=== PATIENT | male | born 1945 | race Caucasian/White ===

== ENCOUNTER 2018-06-12 14:24 | Observation (INO) | payer MEDICARE, OTHER ==
[~2018-06-12 14:24] MED LIST: Lactated Ringers 1,000 ML IV SCH; Sodium Chloride 0.9% 10 ML Syringe FLUSH PRN; Sodium Chloride 0.9% 2.5 ML Syringe FLUSH PRN; ceFAZolin 1 GM in Premix Bag 1 BAG IV SCH
[2018-06-12] MEDS: ceFAZolin 1 GM in Premix Bag 1 BAG IV SCH ×2 (17:42→22:20)
[2018-06-12] MEDS: QUEtiapine 25 MG Tab PO SCH (22:20)
[2018-06-13] MEDS: ceFAZolin 1 GM in Premix Bag 1 BAG IV SCH ×4 (03:36→22:05)
--- NOTE | 2018-06-13 08:42 | PCM.PREANE ---
Preanesthetic Assessment - Anesthesia/Transfusion/Family Hx Anesthesia History: Prior Anesthesia Without Reaction (william, vasectomy, ctr) Family History of Anesthesia Reaction: No Transfusion History: No Prior Transfusion(s) - Review of Systems General: No Symptoms Pulmonary: No Symptoms Cardiovascular: No Symptoms Gastrointestinal: No Symptoms Neurological: No Symptoms Other: Reports: None - Physical Assessment NPO Status Date: 06/12/18 O2 Sat by Pulse Oximetry: 97 Respiratory Rate: 17 Vital Signs: Last Vital Signs Temp 98.4 F 06/13/18 04:00 Pulse 64 06/12/18 17:00 Resp 17 06/13/18 04:00 BP 121/71 06/13/18 04:00 Pulse Ox 97 06/13/18 04:00 Height: 6 ft Weight: 69.853 kg ASA Class: 2 Mental Status: Alert & Oriented x3 Airway Class: Mallampati = 2 Dentition: Reports: Dentures (full lower, not in mouth), Bridge (upper central) ROM/Head Extension: Full Lungs: Clear to Auscultation, Normal Respiratory Effort Cardiovascular: Regular Rate, Regular Rhythm - Lab Values: Laboratory Last Values POC Glucose 88 mg/dL (60-110) 06/12/18 15:26 - Allergies Allergies/Adverse Reactions: Allergies Allergy/AdvReac Type Severity Reaction Status Date / Time pollen extracts Allergy Mild Other Verified 06/12/18 15:14 - Blood Blood Available: No - Anesthesia Plan Pre-Op Medication Ordered: None - Acknowledgements Anesthesia Type Planned: Spinal Pt an Appropriate Candidate for the Planned Anesthesia: Yes Alternatives and Risks of Anesthesia Discussed w Pt/Guardian: Yes Pt/Guardian Understands and Agrees with Anesthesia Plan: Yes Additional Comments: PMH: depression, hh/gerd, bph/urin retention, on self cath program, admitted dec 2017 in [facility] with RENATO secondary to obstructive uropathy H&P by Dr Bucio 6-8 weeks ago- we have no coopy of the H&P, ekg. kabs, CXR - have called [facility] for a copy of them PLAN: spinal with sedation PreAnesthesia Questionnaire HEENT History: Reports: Allergic Rhinitis Gastrointestinal History: Reports: Hiatal Hernia, Other (See Below) Other Gastrointestinal History: inguinal hernia Genitourinary History: Reports: BPH, Renal Disease, Retention, Urinary Musculoskeletal History: Reports: Arthritis, Other (See Below) Other Musculoskeletal History: left knee dislocation Psychiatric History: Reports: Depression - Infectious Disease History Infectious Disease History: Reports: Other (See Below) Other Infectious Disease History: pt does not know - Past Surgical History HEENT Surgical History: Reports: Naso-Sinus Surgery GI Surgical History: Reports: Cholecystectomy Musculoskeletal Surgical History: Reports: None - SUBSTANCE USE Smoking Status *Q: Never Smoker Second Hand Smoke Exposure: No Recreational Drug Use History: No - HOME MEDS Home Medications: Home Meds QUEtiapine [SEROquel] 25 mg PO BEDTIME 06/12/18 [History] Sertraline HCl 100 mg PO DAILY 06/12/18 [History] - CURRENT (IN HOUSE) MEDS Current Meds: Current Medications Lactated Ringer's (Ringers, Lactated) 1,000 mls @ 100 mls/hr IV ASDIRECTED CHICA Tobramycin 120 mg/ Sodium (Chloride) 103 mls @ 103 mls/hr IV Q12H [facility] Last Admin: 06/13/18 04:10 Dose: 103 mls/hr Cefazolin Sodium/Dextrose 1 gm (/ Premix) 50 mls @ 100 mls/hr IV Q6H [facility] Last Admin: 06/13/18 03:36 Dose: 100 mls/hr Quetiapine Fumarate (Seroquel) [address] [facility] Last Admin: 06/12/18 22:20 Dose: 25 mg Sertraline HCl (Zoloft) [address] [facility] Sodium Chloride (Saline Flush) 10 ml FLUSH ASDIRECTED PRN PRN Reason: Keep Vein Open Sodium Chloride (Saline Flush) 2.5 ml FLUSH ASDIRECTED PRN PRN Reason: Keep Vein Open Discontinued Medications Cefazolin Sodium/Dextrose 1 gm (/ Premix) 50 mls @ 100 mls/hr IV Q6H [facility] Stop: 05/23/18 10:00 Lactated Ringer's (Ringers, Lactated) 1,000 mls @ 100 mls/hr IV ASDIRECTED CHICA Tobramycin 120 mg/ Sodium (Chloride) 103 mls @ 103 mls/hr IV Q12H [facility] Sodium Chloride (Saline Flush) 10 ml FLUSH ASDIRECTED PRN PRN Reason: Keep Vein Open Sodium Chloride (Saline Flush) 2.5 ml FLUSH ASDIRECTED PRN PRN Reason: Keep Vein Open
[2018-06-13] MEDS ORDERED: fentaNYL 250 MCG/5 ML SDV ONE (08:46)
[2018-06-13] MEDS ORDERED: Propofol 200 MG/20 ML SDV ONE (08:46)
[2018-06-13] MEDS ORDERED: ePHEDrine 50 MG/ML SDV ONE (10:17)
[2018-06-13] MEDS ORDERED: Sodium Chloride 0.9% 20 ML ONE (10:18)
[2018-06-13] MEDS ORDERED: fentaNYL 100 MCG/2 ML SDV IVPUSH PRN (11:11)
[2018-06-13] MEDS ORDERED: HYDROmorphone 2 MG/ML SDV IVPUSH ONE (11:11)
[2018-06-13] MEDS ORDERED: Ondansetron 4 MG/2 ML SDV IVPUSH ONE (11:11)
--- NOTE | 2018-06-13 12:00 | PCM.POSTAN ---
POST ANESTHESIA ASSESSMENT - MENTAL STATUS Mental Status: Alert, Oriented - RESPIRATORY Respiratory Status: Respiratory Rate WNL, Airway Patent, O2 Saturation Stable - CARDIOVASCULAR CV Status: Pulse Rate WNL, Blood Pressure Stable - GASTROINTESTINAL GI Status: No Symptoms - POST OP HYDRATION Hydration Status: Adequate & Stable
--- NOTE | 2018-06-13 14:04 | OR ---
SURGEON: Lisa Green M.D. DATE OF PROCEDURE: 06/13/2018 PREOPERATIVE DIAGNOSIS: Urinary retention secondary to benign prostatic hyperplasia. POSTOPERATIVE DIAGNOSIS: Urinary retention secondary to benign prostatic hyperplasia. OPERATION: TURP. DESCRIPTION OF PROCEDURE: The patient was given anesthesia. He was placed in dorsal lithotomy position, prepped and draped in sterile drapes. The 28-Nepali resectoscope was introduced in the bladder without difficulty. The resection was done in the usual manner, starting with the floor of the prostatic urethra, going on laterally and anteriorly. At the end of resection, all prostatic chips were removed. Both ureteral orifices were intact. The area of the external sphincter was intact. A 22 three-way Harley catheter with 50 mL in the balloon was left in the bladder, connected to TUR drip. Estimated blood loss was 200 mL. The patient tolerated the procedure well and was moved to recovery room in a good condition. GONZALO / NASIM /[id number]
[2018-06-13] MEDS: Sertraline 100 MG Tab PO SCH (14:10)
--- NOTE | 2018-06-13 15:23 | PCM.SN ---
- Free Text/Narrative Note: 06/13/18 1522 patient status changed to observation due to need for bladder irrigation post op for 24 hours
[2018-06-13] MEDS: Lactated Ringers 1,000 ML IV SCH (15:45)
[2018-06-13] MEDS: QUEtiapine 25 MG Tab PO SCH (20:53)
[2018-06-14] MEDS: ceFAZolin 1 GM in Premix Bag 1 BAG IV SCH ×3 (03:31→15:59)
[2018-06-14] MEDS: Lactated Ringers 1,000 ML IV SCH ×2 (03:33→16:01)
[2018-06-14] MEDS: Sertraline 100 MG Tab PO SCH (09:28)
--- NOTE | 2018-06-14 10:06 | PCM.SN ---
- Free Text/Narrative Note: Doing well
--- NOTE | 2018-06-14 14:18 | PCM48HPAN ---
Post Anesthesia Note - EVALUATION WITHIN 48HRS OF ANESTHETIC Vital Signs in Normal Range: Yes Patient Participated in Evaluation: Yes Respiratory Function Stable: Yes Airway Patent: Yes Cardiovascular Function Stable: Yes Hydration Status Stable: Yes Pain Control Satisfactory: Yes Nausea and Vomiting Control Satisfactory: Yes Mental Status Recovered: Yes Resp Rate: 18
--- NOTE | 2018-06-15 05:19 | DISCH ---
DATE OF DISCHARGE: 06/14/2018 PRIMARY CARE PHYSICIAN: Unknown PCP He is 73 years old. He had difficulty urinating in the past and has been on self-intermittent catheterization for the last 3 months or so. He was seen in the office, was found to have an enlarged prostate, approximately 20 g for the adenoma. I decided to do a TURP on him to reduce the outflow resistance and see if he can void on his own without having to do self-intermittent catheterization, so that was done on 06/13/2018. Postoperatively, he did well. The catheter was taken out on 06/14/2018. He was, however, unable to void and had 800 mL of urine in his bladder. The urine is clear. We put the catheter back in and connected that to a leg bag. He was instructed to leave that in for one week or he was instructed to take it out in the morning next Tuesday and come to my office at 4:00 p.m. on Tuesday, so we can see if he has been able to void during that day and it is left in his bladder at that point. He is sent home on Macrobid 100 mg one p.o. b.i.d. for one week. GONZALO / NASIM /[id number]
== END 2018-06-14 19:10 | disposition home or self-care (01) ==
LOC: MW.SDS 14:24 → MW.MS 14:25 → MW.SDS 06-13 15:12 → MW.MS 06-13 15:46
PROVIDERS: ADMIT Urology; ATTEND Urology
DX: N40.1 Benign prostatic hyperplasia with lower urinary tract symptoms (principal); R33.8 Other retention of urine; F32.9 Major depressive disorder, single episode, unspecified; Z88.9 Allergy status to unspecified drugs, medicaments and biological substances; Z79.899 Other long term (current) drug therapy
CPT/HCPCS: 51701; 51702; 52601; 82962; 88305; 96361; 96365; 96366; 96367; 96376; A9270; G0378; J0690; J2704; J3010; J3260; J7030; J7120; 00914